=== PATIENT | female | born 1990 | race African-American/Black ===

== ENCOUNTER 2019-11-02 12:11 | Observation (INO) | payer OTHER, SELFPAY ==
[2019-11-02 12:41] VITALS: BMI 34.2
--- NOTE | 2019-11-02 12:42 | OBADM ---
This patient, Skip Wade, admitted to the OB room OB Post 115 for observation. Patient/family oriented to hospital policies and general routines including ID bracelet, bed and alarms, visiting hours, pain management, procedures, bathroom and other care routines, personal items, smoking policy, room service/diet, and visiting hours. Patient/Family are encouraged to report perceived risks to care and to ask questions if they do not understand what they are told or what they should do.
[2019-11-02 12:46] VITALS: BP 98/54; PULSE 105
[2019-11-02 12:50] LABS: Add Urine Microscopic? YES; Appearance Urine Clear (Clear); Bacteria Urine Trace /hpf; Bilirubin Urine Negative (Negative); Blood Urine Negative (Negative); Color Urine Yellow (Yellow); Glucose Urine UA Negative (Negative); Ketones Urine 1+ mg/dL (Negative); Leukocyte Esterase Ur Trace LEU/UL (Negative); Mucus Urine Few /lpf; Nitrate Urine Negative (Negative); Protein Urine 1+ mg/dL (Negative); Squamous Epithelial Cell Urine Moderate /hpf (Few); WBC Urine 0-3 /hpf
[2019-11-02 13:01] VITALS: BP 104/57; PULSE 113
--- NOTE | 2019-11-02 13:12 | P.PNOB_ITS ---
OB - Triage/Final Diagnosis Visit Information Date of evaluation: 11/02/19 Reason for evaluation: threatened labor Evaluation Laboratory results: Laboratory Tests 11/02/19 12:35 Urine Color Yellow Urine Appearance Clear Urine pH 6.0 Ur Specific [place] 1.020 Urine Protein 1+ H Urine Glucose (UA) Negative Urine Ketones 1+ H Ur Blood (Man) Negative Urine Nitrate Negative Urine Bilirubin Negative Urine Urobilinogen 4.0 H Leukocyte Esterase Rfl Trace H Urine RBC 3-5 H Urine WBC 0-3 Ur Squamous Epith Cells Moderate H Urine Bacteria Trace Urine Mucus Few H Vital signs: Vital Signs - 24 hr 11/02/19 12:46 11/02/19 13:01 Pulse Rate 105 H 113 H Blood Pressure 98/54 L 104/57 L
--- NOTE | 2019-11-02 13:17 | PC.NURSE ---
1310- Spoke with Dr. Tala Rangel regarding patient admission for pelvic pain. patient States the pain has been there for a while but has increased the last two days. urinalysis results given. Per Dr. tala Rangel, perform SVE and discharge patient to home.
== END 2019-11-02 13:27 | disposition home or self-care (01) ==
PROVIDERS: Admitting Provider Obstetrics & Gynecology; Visit Provider Obstetrics & Gynecology
DX: O47.03 False labor before 37 completed weeks of gestation, third trimester (principal); Z3A.34 34 weeks gestation of pregnancy
CPT/HCPCS: 81001; G0378; G0379

== ENCOUNTER 2019-11-30 12:52 | Observation (INO) | payer OTHER, SELFPAY ==
--- NOTE | 2019-11-30 15:21 | OBADM ---
This patient, Skip Wade, admitted to the OB room Labor/Delivery/Recovery 120 for observation. Patient/family oriented to hospital policies and general routines including ID bracelet, bed and alarms, visiting hours, pain management, procedures, bathroom and other care routines, personal items, smoking policy, room service/diet, and visiting hours. Patient/Family are encouraged to report perceived risks to care and to ask questions if they do not understand what they are told or what they should do.
--- NOTE | 2019-12-02 10:00 | P.DS_ITS ---
DS: Diagnosis Admitting Diagnosis Admitting Diagnosis: term/prev section/labor DS: Summary Time Spent with Patient Time attestation: Total time spent providing and/or coordinating discharge services: Exam Const: General: no acute distress Eyes: General: appearance normal, both eyes and all related structures Neck: Neck: supple and no JVD Thyroid: thyroid normal Resp: Effort & Inspection: normal respiratory effort Auscultation: clear to auscultation bilaterally Cardio: Rate: regular rate Rhythm: regular rhythm GI: Inspection: non-distended GI Palp: Yes Soft to palpation, No Tenderness to palpation present (GI) and No Guarding due to palpation present (GI) Auscultation: normal bowel sounds : General: Yes bladder normal to palpation External Female Exam: normal external appearance Speculum Exam - Vagina: normal vaginal discharge and No vaginal bleeding Speculum Exam - Cervix: nontender Bimanual exam- vagina & uterus: bladder normal to palpation and No Cervical tenderness present OB/external & speculum: No vaginal bleeding Skin: General skin exam: no rashes or lesions noted Extrem: General: normal to inspection and no edema Psych: Mental Status: mental status grossly normal Affect: normal affect Discharge Plan Discharge Attending physician on discharge: Mazin Richards Discharging Clinician: Mazin Richards Anticipated Discharge Date/Time: 11/30/19 15:30 Patient Disposition: Home, Self-Care Activity: may shower and as tolerated Diet: as tolerated Wound Care Instructions: follow printed instructions Stand Alone Forms: General Discharge Information Follow-up/Referrals: Mazin Richards MD [Physician] - Discharge Medications: Continued Classic 28 mg iron- 800 mcg Tablet 1 tablet PO DAILY RF: 0 No Action hydrocodone-acetaminophen [[place]] 5-325 mg tablet 1 tablet PO Q4H PRN (Reason: pain) Qty: 30 RF: 0 Date of admission: 11/30/19 12:52 Primary Care Provider: UNKNOWN,DOCTOR Admitting Provider: Mazin Richards Discharge Date/Time: 11/30/19 15:28 Attending physician on admission: Mazin Richards
--- NOTE | 2020-01-18 14:23 | PM.OBTRLD ---
OB - Triage/Final Diagnosis Visit Information Date of evaluation: 12/24/19 Reason for evaluation: threatened labor
== END 2019-11-30 15:28 | disposition home or self-care (01) ==
PROVIDERS: Admitting Provider Obstetrics & Gynecology; Visit Provider Obstetrics & Gynecology
DX: O34.219 Maternal care for unspecified type scar from previous cesarean delivery (principal); Z3A.38 38 weeks gestation of pregnancy
CPT/HCPCS: G0378; G0379

== ENCOUNTER 2019-11-30 18:25 | Inpatient (IN) | payer OTHER, SELFPAY ==
--- NOTE | 2019-11-10 14:51 | PC.NURSE ---
PATIENT STATES SHE IS A C/S ON 12/02/19 AT 0730--CALLED OFFICE DUE NOT FINDING PATIENT ON OR SCHEDULE--INFORMED WILL CALL SURGERY AND SCHEDULE THE C/S ON 12/02/19 AT 0730 PATIENT GIVEN REQUISITION FOR LAB DRAW ON 12/01/19
[2019-11-30] VITALS (47 sets, daily range): BP systolic 106–144; BP diastolic 44–89; PULSE 66–108; RESP 16–18; TEMP 36.2–36.7; O2SAT 97–100; BMI 33.8
--- NOTE | 2019-11-30 17:00 | PM.OBTRLD ---
OB - Triage/Final Diagnosis Visit Information Date of evaluation: 11/30/19 Reason for evaluation: threatened labor
--- NOTE | 2019-11-30 18:56 | WPDANESEPP ---
Anes - Eval Pre Procedure Procedure: Operation Date: 12/02/19 07:30 Proposed Procedures p Repeat Section - Mazin Richards MD Date/Time: 11/30/19 18:56 Surgeon: Rayo Rangel Preop Diagnosis: Previous C Section Pre Op Diagnosis: contractions Patient Data Age: 29 Gender: F Height: Weight: Allergies Allergy/AdvReac Type Severity Reaction Status Date / Time No Known Allergies Allergy Verified 11/10/19 14:41 Home Medications Medication Instructions Recorded Confirmed Type Classic 1 tablet PO DAILY 11/02/19 11/02/19 History Patient hx anesthesia problems: none Family hx anesthesia problems: none PMFSH Past Medical History Medical History Morbid obesity Surgical History Surgical History Previous section Family History Family History Mother Hypertension Social History Social History Substance use: never Spiritual care concerns: No Exam Day of Procedure 11/30/19 18:56 Patient weight: morbidly obese Heart: regular rate and rhythm Airway: Mallampati scale class II Neurological: alert and oriented
[2019-11-30 19:08] LABS: Basophils Percent Auto 0.2 % (0.2-1.2); Eosinophils Absolute Auto 0.1 K/mm3 (0-0.3); Eosinophils Percent Auto 0.6 % (0-4.4); Hematocrit 31.6 % (37.0-47.0); Hemoglobin 9.7 g/dL (12.0-15.0); Immature Granulocyte Absolute 0.06 K/mm3 (0.00-0.031); Immature Granulocyte Percent A 0.6 % (0-0.5); Lymphocytes Absolute Auto 1.52 K/mm3 (0.9-3.2); Lymphocytes Percent Auto 14.9 % (18.3-44.2); Mean Corpuscular HGB Conc 30.7 g/dl (32-36); Mean Corpuscular Hemoglobin 24.5 pg (26-34); Mean Corpuscular Volume 79.8 fl (80-100); Monocytes Absolute Auto 0.9 K/mm3 (0.1-0.6); Monocytes Percent Auto 8.4 % (2.6-8.5); Neutrophils Absolute Auto 7.7 K/mm3 (1.3-6.7); Neutrophils Percent Auto 75.3 % (45.5-73.1); Platelet Count Result 212 k/mm3 (150-375); Red Blood Count 3.96 M/mm3 (4.2-5.4); Red Cell Distribution Width 15.3 % (11.5-14.5); White Blood Count 10.2 K/mm3 (4.5-10.0)
[2019-11-30] MEDS: LACTATED RINGERS 1,000 ML 125 ML IV CONT (19:13)
--- NOTE | 2019-11-30 19:14 | WPDANESEFPP ---
Anes - Eval Final PreProcedure Day of Procedure 11/30/19 19:14 Patient weight: morbidly obese Heart: regular rate and rhythm Lungs: clear to auscultation and normal air movement Airway: Mallampati scale class II Neurological: alert and oriented Last oral intake: >/= 8 hours ASA classification: III Emergent: no Anesthetic plan: proceed Anesthesia type and monitoring: regional spinal Informed Consent: The patient's anesthetic plan and its attendant risks and benefits were discussed with the patient/family/POA. Questions were solicited and answers provided to the satisfaction of the patient/family/POA.
[2019-11-30] MEDS: ceFAZolin 2 GM/D5W 50 ML 2 GM/50 ML BAG IVPB (19:21)
--- NOTE | 2019-11-30 20:06 | PM.IMHP ---
H&P: HPI History of Present Illness Chief complaint: contractions Narrative: Skip Wade is a 29 year old female Who presents at term in active labor. 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 She was scheduled for repeat section. She was seen earlier in the day with some irregular contractions sent home. She returned today in active labor. She was scheduled for repeat section Review of Systems Review of Systems: All systems reviewed & are unremarkable except as noted in HPI and below PMFSH Past Medical History Medical History Morbid obesity Surgical History Surgical History Previous section Family History Family History Mother Hypertension Social History Social History Substance use: never Spiritual care concerns: No Meds Home Medications and Allergies Home Medications Medication Instructions Recorded Confirmed Type Classic 1 tablet PO DAILY 11/02/19 11/02/19 History Allergies Allergy/AdvReac Type Severity Reaction Status Date / Time No Known Allergies Allergy Verified 11/10/19 14:41 Vital Signs Vital Signs - 24 hr 11/30/19 19:01 Pulse Rate 108 H Blood Pressure 144/87 H Exam Const: General: no acute distress Eyes: General: appearance normal, both eyes and all related structures Neck: Neck: supple and no JVD Thyroid: thyroid normal Resp: Effort & Inspection: normal respiratory effort Auscultation: clear to auscultation bilaterally Cardio: Rate: regular rate Rhythm: regular rhythm GI: Inspection: non-distended GI Palp: Yes Soft to palpation, No Tenderness to palpation present (GI) and No Guarding due to palpation present (GI) Auscultation: normal bowel sounds : General: Yes other (cx 4 by rn exam. fhts ok. ucs q 2) Skin: General skin exam: no rashes or lesions noted Extrem: General: normal to inspection and no edema Psych: Mental Status: mental status grossly normal Affect: normal affect H&P: Results Labs Labs: Short CBC 11/30/19 Range/Units 18:58 WBC 10.2 H (4.5-10.0) K/mm3 Hgb 9.7 L (12.0-15.0) g/dL Hct 31.6 L (37.0-47.0) % Plt Count 212 (150-375) k/mm3 Assessment and Plan Additional Plan term in active labor with known cleft palate and agenesis of the corpus callosum in a. Previously had a section Plan: Repeat low-transverse section
--- NOTE | 2019-11-30 20:08 | P.OP_ITS ---
Procedure Note - Detailed Date of procedure: 11/30/19 Pre-op diagnosis: contractions Surgeon: Mazin Richards MD postop diagnosis: term , previous section, active labor: Known cleft palate and agenesis of the corpus callosum Procedure: Repeat low-transverse section Findings: Female 7 lb 10 oz Apgars 8 and 9 at 1 and 5 minutes respectively EBL: 420cc Anesthesia: Spinal Complications: None Description of procedure: The patient was admitted via ambulance in active lab or. She was seen earlier in the day with irregular contractions and was noted to be in active labor upon admission. After obtaining informed consent, the patient was prepped and draped in the normal sterile fashion placed in the supine position. The previous Pfannenstiel incision was rest 2 layers to the fascia. Fascia was upward outward and upward outward fashion bilaterally. Underlying muscles were sharply dissected. Parietal peritoneum of who initially clamps and entered by sharp dissection. This was carried superiorly and inferiorly to the dome of the bladder. Bladder blade was placed and a bladder flap formed. Bladder blade returned and a low transverse incision made. The head delivered in the NAOMI position. Anterior posterior shoulder delivered spontaneously. Cord was clamped x2 and cut and infant passed off the table given Apgars of 8 [id number] 9 [id number]. Cord blood was drawn. Placenta delivered intact manually. Uterus was delivered from the abdomen and wrapped in a moist towel. After cleaning debris from the inside of the uterus the lower uterine segment was closed with continuous running locking 0 Vicryl from lateral edge to lateral edge. This was followed by a 2nd imbricating running 0 Vicryl from lateral edge to lateral edge. Hemostasis was assured the ovaries and tubes appeared within normal limits. The uterus was returned to the abdomen. The laps were removed and accounted for. The uterine incision inspected 1 last time and noted to be hemostatic. The fascia was closed with continuous running 0 Vicryl from lateral edge to midline bilaterally. Irrigation subcutaneous layer. The skin closed with 4 O Monocryl and glue. All sponge, needle, instrument counts were correct. There were no immediate complications
--- NOTE | 2019-11-30 20:53 | LDADM ---
This patient, Skip Wade, was admitted to Labor/Delivery/Recovery 120 on 11/30/19 at 18:25. Plans for labor, pain management and were discussed with patient. Patient/family oriented to hospital policies and general routines including ID bracelet, bed and alarms, visiting hours, pain management, procedures, bathroom and other care routines, personal items, smoking policy, room service/diet and guest tray routines, security routines, and visiting hours. Patient/Family are encouraged to report perceived risks to care and to ask questions if they do not understand what they are told or what they should do. See OBIX for further documentation.
--- NOTE | 2019-11-30 22:18 | OBPPTRN ---
Patient transferred to post room #288 via stretcher. Support person present. Oriented to unit, room, information board, rooming in, admission packet and security measures. Patient verbalizes understanding.
[2019-11-30] MEDS: ONDANSETRON INJ 4 MG/2 ML VIAL IV PUSH (22:40)
[2019-12-01] VITALS (9 sets, daily range): BP systolic 102–118; BP diastolic 60–75; PULSE 87–97; RESP 16–18; TEMP 36.7–37.4; O2SAT 95–100
[2019-12-01] MEDS: NALBUPHINE HCL 10 MG/ML AMPUL 2 MG IV PUSH ×3 (01:01→09:10)
[2019-12-01] MEDS: DEXTROSE 5%/0.45% SOD CHL 1,000 ML 125 ML IV CONT (02:36)
[2019-12-01 04:57] LABS: Basophils Percent Auto 0.1 % (0.2-1.2); Eosinophils Percent Auto 0.2 % (0-4.4); Hematocrit 28.8 % (37.0-47.0); Hemoglobin 8.9 g/dL (12.0-15.0); Immature Granulocyte Percent A 0.6 % (0-0.5); Lymphocytes Absolute Auto 1.53 K/mm3 (0.9-3.2); Lymphocytes Percent Auto 9.8 % (18.3-44.2); Mean Corpuscular HGB Conc 30.9 g/dl (32-36); Mean Corpuscular Hemoglobin 24.3 pg (26-34); Mean Corpuscular Volume 78.7 fl (80-100); Mean Platelet Volume 10.7 fl (7.4-10.4); Monocytes Absolute Auto 1.2 K/mm3 (0.1-0.6); Monocytes Percent Auto 7.5 % (2.6-8.5); Neutrophils Absolute Auto 12.8 K/mm3 (1.3-6.7); Neutrophils Percent Auto 81.8 % (45.5-73.1); Platelet Count Result 213 k/mm3 (150-375); Red Blood Count 3.66 M/mm3 (4.2-5.4); Red Cell Distribution Width 15.1 % (11.5-14.5); White Blood Count 15.7 K/mm3 (4.5-10.0)
--- NOTE | 2019-12-01 07:06 | PM.OBPNVD ---
OB - PN: Subj Subjective Date/time seen: 12/01/19 07:06 Patient comments: no complaints and pain well controlled baby status: doing well and nursing well OB - PN: Obj Data Labs CBC & Chem 7: 12/01/19 04:35 Labs: Laboratory Results - last 24 hr 11/30/19 11/30/19 12/01/19 18:58 18:58 04:35 WBC 10.2 H 15.7 H RBC 3.96 L 3.66 L Hgb 9.7 L 8.9 L Hct 31.6 L 28.8 L MCV 79.8 L 78.7 L MCH 24.5 L 24.3 L MCHC 30.7 L 30.9 L RDW 15.3 H 15.1 H Plt Count 212 213 MPV 11.0 H 10.7 H Immature Gran % (Auto) 0.6 H 0.6 H Neut % (Auto) 75.3 H 81.8 H Lymph % (Auto) 14.9 L 9.8 L [place] % (Auto) 8.4 7.5 Eos % (Auto) 0.6 0.2 Baso % (Auto) 0.2 0.1 L Lymph # (Auto) 1.52 1.53 [place] # (Auto) 0.9 H 1.2 H Eos # (Auto) 0.1 0.0 Baso # (Auto) 0.0 0.0 Abs Immat Gran (auto) 0.06 H 0.10 H Absolute Neuts (auto) 7.7 H 12.8 H Absolute Nucleated RBC 0.0 0.0 Nucleated RBC % 0.0 0.0 Blood Type O Positive Antibody Screen Negative OB - PN A/P Plan day: 1 Plan: routine care Time Spent With Patient Time: Total time spent is greater than 50% in coordination of care (as documented) at patient's floor/unit and/or counseling patient: Time with patient: less than 15 minutes Review of Systems Review of Systems: All systems reviewed & are unremarkable except as noted in HPI and below Exam Const: General: no acute distress Eyes: General: appearance normal, both eyes and all related structures Neck: Neck: supple and no JVD Thyroid: thyroid normal Resp: Effort & Inspection: normal respiratory effort Auscultation: clear to auscultation bilaterally Cardio: Rate: regular rate Rhythm: regular rhythm GI: Inspection: normal to inspection Percussion: Yes normal to percussion Auscultation: normal bowel sounds Other: wound cdi : General: Yes bladder normal to palpation External Female Exam: normal external appearance Speculum Exam - Vagina: normal vaginal discharge and No vaginal bleeding Speculum Exam - Cervix: nontender Bimanual exam- vagina & uterus: bladder normal to palpation and No Cervical tenderness present OB/external & speculum: No vaginal bleeding Skin: General skin exam: no rashes or lesions noted Extrem: General: normal to inspection and no edema Psych: Mental Status: mental status grossly normal Affect: normal affect
[2019-12-01] MEDS: KETOROLAC 30 MG/ML VIAL (*BKC) IV PUSH (07:09)
[2019-12-01] MEDS: LORATADINE 10 MG TABLET PO (07:33)
--- NOTE | 2019-12-01 08:14 | WPDANLDPN2 ---
Anes-Prog Note L&D Date/Time: 12/01/19 08:14 Comfortable throughout: section Neuraxial method: spinal Epidural/Spinal procedure site: clean & non-tender Neuro status: Neuro function grossly intact. Cardiovascular status: normal Respiratory status: normal Airway patency: baseline Mental status: baseline Post-Op hydration status: normal Vital Signs: Last Vital Signs Temp 36.9 C 12/01/19 06:00 Pulse 96 12/01/19 06:00 Resp 18 12/01/19 06:00 BP 115/60 12/01/19 06:00 Pulse Ox 98 12/01/19 06:00 Pain score (VAS): 0/10. Patient resting up to chair at time of assessment, appears comfortable. RN and support person at bedside. I/O: Intake & Output 11/30/19 12/01/19 12/01/19 23:59 07:59 15:59 Intake Total 1050 740 Output Total 507 600 Balance 543 140 Post-procedural complaints: none Patient feedback: Patient satisfied with anesthetic care.
--- NOTE | 2019-12-01 08:15 | WPDANLDNPN2 ---
Anes-Prog Note L&D-Neuraxial Date/Time: 12/01/19 08:15 Neuraxial medications: intrathecal PF morphine Opiod-related complaints: nausea mild, no treatment Patient feedback: Patient satisfied with post-operative pain management.
[2019-12-01] MEDS: POLYSACCHARIDE IRON COMPLEX 150 MG CAPSULE PO ×2 (09:09→15:36)
[2019-12-01 10:29] LABS: Rapid Plasma Reagin Non-Reactive (NonReactive)
[2019-12-01] MEDS: IBUPROFEN 600 MG TABLET PO ×2 (15:36→23:29)
--- NOTE | 2019-12-01 15:45 | PC.NURSE ---
Breast pump provided due to mother wishes to pump and bottle feed at this time. Instructions given on breast pump care and usage, pumping schedule, nipple care, and collection and storage of breast milk. Encouraged [id number], breast massage and manual expression to stimulate supply. Mother did not wish for assessment of flange size, she feels comfortable with pumping from first child. Mother states she will pump later when ready. Patient verbalizes and demonstrates understanding of instructions.
[2019-12-01] MEDS: SIMETHICONE 80 MG TAB.CHEW PO ×2 (17:53→23:29)
[2019-12-02] MEDS: SIMETHICONE 80 MG TAB.CHEW PO ×3 (04:28→17:40)
--- NOTE | 2019-12-02 06:45 | P.PNOB_ITS ---
OB - PN: Subj Subjective Date/time seen: 12/02/19 06:45 Patient comments: no complaints and pain well controlled OB - PN: Obj Data Labs CBC & Chem 7: 12/01/19 04:35 Labs: Laboratory Results - last 24 hr 11/30/19 18:58 RPR Non-reactive OB - PN A/P Plan day: 2 Plan: routine care Time Spent With Patient Time: Total time spent is greater than 50% in coordination of care (as documented) at patient's floor/unit and/or counseling patient: Time with patient: less than 15 minutes Review of Systems Review of Systems: All systems reviewed & are unremarkable except as noted in HPI and below Exam Const: General: no acute distress Eyes: General: appearance normal, both eyes and all related structures Neck: Neck: supple and no JVD Thyroid: thyroid normal Resp: Effort & Inspection: normal respiratory effort Auscultation: clear to auscultation bilaterally Cardio: Rate: regular rate Rhythm: regular rhythm GI: Inspection: non-distended GI Palp: Yes Soft to palpation, No Tenderness to palpation present (GI) and No Guarding due to palpation present (GI) Auscultation: normal bowel sounds : General: Yes bladder normal to palpation External Female Exam: normal external appearance Speculum Exam - Vagina: normal vaginal discharge and No vaginal bleeding Speculum Exam - Cervix: nontender Bimanual exam- vagina & uterus: bladder normal to palpation and No Cervical tenderness present OB /external & speculum: No vaginal bleeding Skin: General skin exam: no rashes or lesions noted Extrem: General: normal to inspection and no edema Psych: Mental Status: mental status grossly normal Affect: normal affect
[2019-12-02 08:45] VITALS: BP 117/68; PULSE 91; RESP 18; TEMP 37; O2SAT 98
--- NOTE | 2019-12-02 10:01 | DS_ITS ---
Discharge Summary Signed This report was moved to the correct visit, [id number] on 12/23/2019. Original report was signed by Dr. Mazin Richards on 12/03/2019 at 0645. DS: Diagnosis Admitting Diagnosis Admitting Diagnosis: term/prev section/labor DS: Summary Time Spent with Patient Time attestation: Total time spent providing and/or coordinating discharge services: Exam Const: General: no acute distress Eyes: General: appearance normal, both eyes and all related structures Neck: Neck: supple and no JVD Thyroid: thyroid normal Resp: Effort & Inspection: normal respiratory effort Auscultation: clear to auscultation bilaterally Cardio: Rate: regular rate Rhythm: regular rhythm GI: Inspection: non-distended GI Palp: Yes Soft to palpation, No Tenderness to palpation present (GI) and No Guarding due to palpation present (GI) Auscultation: normal bowel sounds : General: Yes bladder normal to palpation External Female Exam: normal external appearance Speculum Exam - Vagina: normal vaginal discharge and No vaginal bleeding Speculum Exam - Cervix: nontender Bimanual exam- vagina & uterus: bladder normal to palpation and No Cervical tenderness present OB/external & speculum: No vaginal bleeding Skin: General skin exam: no rashes or lesions noted Extrem: General: normal to inspection and no edema Psych: Mental Status: mental status grossly normal Affect: normal affect Discharge Plan Discharge Attending physician on discharge: Mazin Richards Discharging Clinician: Mazin Richards Anticipated Discharge Date/Time: 11/30/19 15:30 Patient Disposition: Home, Self-Care Activity: may shower and as tolerated Diet: as tolerated Wound Care Instructions: follow printed instructions Stand Alone Forms: General Discharge Information Follow-up/Referrals: Mazin Richards MD [Physician] - Discharge Medications: Continued Classic 28 mg iron- 800 mcg Tablet 1 tablet PO DAILY RF: 0 No Action hydrocodone-acetaminophen [[place]] 5-325 mg tablet 1 tablet PO Q4H PRN (Reason: pain) Qty: 30 RF: 0 Date of admission: 11/30/19 12:52 Primary Care Provider: UNKNOWN,DOCTOR Admitting Provider: Mazin Richards Discharge Date/Time: 11/30/19 15:28 Attending physician on admission: Mazin Richards Report Initialized date/time: Mazin Burgess MD 12/02/19 / 1001 Electronically signed by: Mazin Burgess MD 12/03/19 0645 [facility]
[2019-12-02 10:45] VITALS: PULSE 91; RESP 18; O2SAT 98
[2019-12-02] MEDS: MULTIVIT/MIN/PREN/FOL AC/IRON TABLET 1 TAB PO (10:48)
[2019-12-02] MEDS: POLYSACCHARIDE IRON COMPLEX 150 MG CAPSULE PO ×2 (10:48→17:40)
[2019-12-02] MEDS: LORATADINE 10 MG TABLET PO (10:48)
[2019-12-02] MEDS: DOCUSATE SODIUM 100 MG CAPSULE PO ×2 (10:48→17:40)
[2019-12-02] MEDS: IBUPROFEN 600 MG TABLET PO ×2 (10:48→22:10)
[2019-12-02] MEDS: LANOLIN (LANSINOH) 7.5 GM CREAM 1 APPLIC TOPICAL (10:50)
--- NOTE | 2019-12-02 13:34 | PCCCNOTE ---
Care Coordinaton Note: Pt. referred for bonding and infant cleft lip and palate. Met with pt. and FOB at bedside. Pt. reports they have already met the team at [facility] that specializes with infants that have cleft lip and palate. They wanted to deliver here and follow up with specialist at [facility] after discharge. Pt. reports bd special education teacher, Dr. Cristina, arranging outpatient follow up. Mother holding, snuggling and kissing on infant during most of our discussion. Mother reports she has had a hard time accepting and processing what issues baby may have. She denies needs for other community resources or counseling. She reports having all necessary baby care items. She is familiar with [facility] and plans to set that up for this baby. She plans to return home with her 3 year old boy, infant, and FOB. She reports they have supportive family and they will be coming up to visit today. She denies further CC needs.
[2019-12-02 20:25] VITALS: BP 118/70; PULSE 85; RESP 18; TEMP 36.8
--- NOTE | 2019-12-03 06:45 | PM.OBPNVD ---
OB - PN: Subj Subjective Date/time seen: 12/03/19 06:45 Patient comments: no complaints and pain well controlled baby status: doing well OB - PN: Obj Data Labs CBC & Chem 7: 12/01/19 04:35 OB - PN A/P Plan day: 3 Plan: routine care, discharge home and follow up 6 weeks (4 weeks) Time Spent With Patient Time: Total time spent is greater than 50% in coordination of care (as documented) at patient's floor/unit and/or counseling patient: Time with patient: less than 15 minutes Review of Systems Review of Systems: All systems reviewed & are unremarkable except as noted in HPI and below Exam Const: General: no acute distress Eyes: General: appearance normal, both eyes and all related structures Neck: Neck: supple and no JVD Thyroid: thyroid normal Resp: Effort & Inspection: normal respiratory effort Auscultation: clear to auscultation bilaterally Cardio: Rate: regular rate Rhythm: regular rhythm GI: Inspection: normal to inspection and incision (cdi) Percussion: Yes normal to percussion : General: Yes bladder normal to palpation External Female Exam: normal external appearance Speculum Exam - Vagina: normal vaginal discharge and No vaginal bleeding Speculum Exam - Cervix: nontender Bimanual exam- vagina & uterus: bladder normal to palpation and No Cervical tenderness present OB/external & speculum: No vaginal bleeding Skin: General skin exam: no rashes or lesions noted Extrem: General: normal to inspection and no edema Psych: Mental Status: mental status grossly normal Affect: normal affect
--- NOTE | 2019-12-03 09:30 | PC.NURSE ---
Consult with pt., mother reports she is not pumping regularly stating she does not have milk. Discussed stimulation and milk supply and to pump every three hours for 15 minutes, to stimulate milk supply. Instructions given on breast pump care and usage, pumping schedule, nipple care, and collection and storage of breast milk. Encouraged [id number], breast massage and manual expression to stimulate supply. Assessed patient for correct flange size, placement and draw on previous day. Patient verbalizes and demonstrates understanding of instructions. Mother states she will pump more regularly one home and she receives her pump from [facility].
--- NOTE | 2019-12-03 09:39 | PC.NURSE ---
Addendum entered by Topher Patel RN 12/03/19 09:40: actual time of note was 0800 Original Note: PT introductions made and plan of care discussed per post op c section, pain management, breast pumping, bottle feeding, daily care activities and pending discharge to home. PT verbalized understanding of such care.
--- NOTE | 2019-12-03 10:00 | PC.NURSE ---
Patient viewed the discharge video Mother & Baby Care, The First Two Weeks . Patient was given the opportunity and encouraged to ask questions. Patient verbalized understanding of information shared and has been given the mother/baby guide for home reference.
[2019-12-03] MEDS: DOCUSATE SODIUM 100 MG CAPSULE PO (10:58)
[2019-12-03] MEDS: LORATADINE 10 MG TABLET PO (10:58)
[2019-12-03] MEDS: SIMETHICONE 80 MG TAB.CHEW PO (10:59)
[2019-12-03] MEDS: POLYSACCHARIDE IRON COMPLEX 150 MG CAPSULE PO (10:59)
[2019-12-03] MEDS: MULTIVIT/MIN/PREN/FOL AC/IRON TABLET 1 TAB PO (10:59)
[2019-12-03 11:00] VITALS: BP 125/82; PULSE 82; PULSE 88; RESP 18; TEMP 37; O2SAT 99
[2019-12-03] MEDS: IBUPROFEN 600 MG TABLET PO (11:01)
--- NOTE | 2019-12-03 12:00 | PC.NURSE ---
PT discharge instructions given per protocol and pt verbalized understanding of such instructions. Follow up appts confirmed
--- NOTE | 2019-12-03 12:00 | PC.NURSE ---
PT received discharge instructions per protocol and verbalized understanding of such instructions.
--- NOTE | 2019-12-03 12:51 | PC.NURSE ---
PT discharged to home ambulatory accompanied by significant other and and taken to waiting car. Follow up appts confirmed
[2019-12-04 09:54] VITALS: BP 135/82; PULSE 79; RESP 18; TEMP 36.8
--- NOTE | 2019-12-24 10:02 | PM.DS ---
DS: Diagnosis Admitting Diagnosis Admitting Diagnosis: Encounter for supervision of normal , unspecified, third trimester DS: Summary Time Spent with Patient Time attestation: Total time spent providing and/or coordinating discharge services: Exam Const: General: no acute distress Eyes: General: appearance normal, both eyes and all related structures Neck: Neck: supple and no JVD Thyroid: thyroid normal Resp: Effort & Inspection: normal respiratory effort Auscultation: clear to auscultation bilaterally Cardio: Rate: regular rate Rhythm: regular rhythm GI: Inspection: non-distended GI Palp: Yes Soft to palpation, No Tenderness to palpation present (GI) and No Guarding due to palpation present (GI) Auscultation: normal bowel sounds : General: Yes bladder normal to palpation External Female Exam: normal external appearance Speculum Exam - Vagina: normal vaginal discharge and No vaginal bleeding Speculum Exam - Cervix: nontender Bimanual exam- vagina & uterus: bladder normal to palpation and No Cervical tenderness present OB/external & speculum: No vaginal bleeding Skin: General skin exam: no rashes or lesions noted Extrem: General: normal to inspection and no edema Psych: Mental Status: mental status grossly normal Affect: normal affect Discharge Plan Discharge Attending physician on discharge: Mazin Richards Consulting providers: Colt Rogers Discharging Clinician: Mazin Richards Patient Disposition: Home, Self-Care Activity: may shower, no straining, may drive after 2 weeks and pelvic rest Diet: heart healthy Wound Care Instructions: follow printed instructions Discharge Instructions: Education: Mom and Baby Guide Given to: Mother Follow-Up: Call your delivering provider's office for an appointment to be seen in: 1 Week Mom and baby should come to the [facility] for the follow-up appointment. Appointment Date/Time: December 04, 2019 at 9:00 am What to expect at your follow-up visit: Blood Pressure Check Call [phone] if you are unable to keep your appointment time. BREAST CARE: 1. Wear a snug supportive bra. 2. For engorgement discomfort: Breast Feeding: A. Apply warm moist washcloths B. Express milk as needed to relieve engorgement C. Wear loose clothing Bottle Feeding: A. May apply ice packs 3. For sore nipples: A. Identify correct latch-on B. Apply warm moist washcloths before and after nursing C. Air dry nipples after nursing D. May apply Lansinoh cream to nipples ABDOMINAL INCISION: (if applicable) 1. Allow incision to air dry 2. Do NOT use lotions for powders on your incision 3. When showering, allow soap and water to run over the incision, but do not wash incision PERINEAL CARE: 1. Until bleeding stops, use your nely bottle after urinating 2. Change your pad frequently throughout the day 3. You may take sitz baths several times a day (fill your bathtub with warm water and soak for 20 minutes.) Do NOT bathe in the water 4. No tub baths until seen by your physician - You may shower ACTIVITY: 1. Rest as much as possible. 2. Do not exercise or lift anything heavier than your baby (such as laundry or other children.) 3. Avoid stairs or driving as much as possible. 4. Do not put anything into the vagina. No douching, tampons, or sexual activity until seen by physician. NOTIFY PHYSICIAN IF YOU HAVE ANY QUESTIONS OR IF ANY OF THE FOLLOWING SYMPTOMS OCCUR: 1. If your incision becomes red, swollen, or more painful than what you have experienced in the hospital. 2. If your vaginal bleeding becomes foul smelling. 3. If your vaginal bleeding becomes more heavy than a period or if your bleeding changes from pink to bright red. However, you may pass an occasional walnut-sized clot once or twice for the first week . 4. If
== END 2019-12-03 12:51 | disposition home or self-care (01) | DRG 540 ==
LOC: ANHLDR 21:31 → ANHOB2 22:41
PROVIDERS: Admitting Provider Obstetrics & Gynecology; Visit Provider Obstetrics & Gynecology
PROC: 10D00Z1 Extraction of Products of Conception, Low, Open Approach (ICD-10-PCS; CPT 59514; principal; 2019-11-30 19:30)
DX: O34.211 Maternal care for low transverse scar from previous cesarean delivery (principal); Z37.0 Single live birth; Z3A.38 38 weeks gestation of pregnancy; O99.214 Obesity complicating childbirth; E66.01 Morbid (severe) obesity due to excess calories; O75.89 Other specified complications of labor and delivery
CPT/HCPCS: 36415; 85025; 86592; 86850; 86900; 86901; A9270; J0131; J0690; J1200; J1885; J2274; J2300; J2370; J2405; J2590; J7120

== ENCOUNTER 2023-08-14 03:13 | Day surgery (SDC) | payer MEDICAID, SELFPAY ==
[2023-08-08 12:02] VITALS: BMI 27.6
--- NOTE | 2023-08-08 12:06 | PC.NURSE ---
Report to the Outpatient Waiting Room, entrance under the green pavilion located off [facility], at time 0600 on date 08/14/23. Planned Procedure Time: 0730. Time changes happen often and if your time is changed the preop area will call you the afternoon before. - You and your visitor will be asked to self-screen and do not enter if you have any COVID symptoms. - A mask is optional within the hospital at this time. Patients may have clear liquids (water, carbonated beverages, clear teas, apple juice) until 3 hours prior to surgery with a maximum of 20 ounces. - No food from midnight until time of surgery Take the following medications with a SIP of water the morning of surgery: N/A DO NOT STOP ANY OF YOUR OTHER PRESCRIPTION MEDICATIONS PRIOR TO SURGERY ?EXCEPT THE FOLLOWING Medications to discontinue per physician: N/A Date to take last dose: N/A Please no make-up, nail wolof, hairspray, perfume, deodorant, or body powder the day of surgery. No jewelry (including any body piercings) or valuables the day of surgery, leave them at home. Please take a shower or bath the night before, or the morning of, surgery with an antibacterial soap. Wear comfortable, loose fitting clothing. - Jewelry must be removed prior to entering the operating room. Rings and piercings that are not removed may be cut off. - The hospital will not accept responsibility for valuables. - Please leave all valuables, including medications, at home the day of surgery. If you are going home after surgery, a licensed jitney driver must drive you home. - NO public transportation without another adult if you receive anesthesia. - We recommend that an adult stay with you for 24 hours following discharge. - We also recommend that you do not drive, make important decision, drink alcoholic beverages, or take any drugs that were not prescribed by your health care provider for at least 24 hours after your discharge time. Follow any additional instructions given to you from your surgeon. If you or anyone in your household have experienced Covid symptoms in the past week, please notify your surgeon or the nurse liaison at the phone number below for possible testing. Telephone instructions given to PT - ROSA WALLIS and asked if any additional questions and then verbalized understanding. Patient advised to call surgeon office or pre surgery nurse liaison [phone] if any additional questions.
--- NOTE | 2023-08-12 07:14 | PM.IMHP ---
H&P: HPI History of Present Illness Date/Time: 08/12/23 07:14 Chief Complaint: Incomplete Narrative: This is a 32-year-old female with an incomplete proven on ultrasound with remaining products conception. She continues to bleed she is offered suction dilatation curettage risks and benefits she had questions answered she asked to proceed PMFSH Past Medical History Medical History (Updated 08/12/23 @ 07:16 by Mazin Rangel MD) Morbid obesity Surgical History Surgical History Previous section Family History Family History Mother Hypertension Social History Social History Smoking status: Never smoker Alcohol intake: current Alcohol use details: OCCASIONALLY WINE Substance use: current Substance use type: marijuana Living arrangements: with family Additional living arrangements comments: CHILDREN Spiritual care concerns: No Meds Home Medications and Allergies Home Medications Medication Instructions Recorded Confirmed Type No Home Medications 08/08/23 08/08/23 History Allergies Allergy/AdvReac Type Severity Reaction Status Date / Time No Known Allergies Allergy Verified 08/08/23 12:02 Exam Const: General: cooperative, healthy appearing and comfortable Nutritional Appearance: average body habitus Orientation/consciousness: oriented to person, oriented to place and oriented to time HENMT: Head: normal to inspection Resp: Effort & Inspection: normal respiratory effort Cardio: Rate: regular rate Rhythm: regular rhythm Heart sounds: S1 normal heart sound present and S2 normal heart sound present GI: Inspection: normal to inspection : External Female Exam: normal external appearance Speculum Exam - Vagina: normal appearance of the vagina and vaginal bleeding Speculum Exam - Cervix: normal appearance of the cervix Bimanual exam- vagina & uterus: enlarged Bimanual Exam- Adnexa, other: normal adnexae Assessment and Plan Assessment and plan (1) Incomplete : Code(s): O03.4 - Incomplete spontaneous without complication Status: Acute Plan Suction dilatation curettage
--- NOTE | 2023-08-13 14:03 | P.PNAN_ITS ---
Anes - Initial Pre Proc Eval Procedure: Operation Date: 08/14/23 07:30 Proposed Procedures p Suction Dilation and Curettage - Mazin Rangel MD Date/Time: 08/13/23 14:03 Surgeon: Mazin Rangel MD Pre Op Diagnosis: Miss Jaquez Patient Data Age: 32 Gender: F Height: 1.7 m Weight: 79.85 kg Allergies Allergy/AdvReac Type Severity Reaction Status Date / Time No Known Allergies Allergy Verified 08/14/23 06:24 Home Medications Medication Instructions Recorded Confirmed Type hydrocodone 5 mg-acetaminophen 325 1 tablet PO Q4H PRN pain #14 tabs 08/14/23 Rx mg tablet Patient hx anesthesia problems: none Family hx anesthesia problems: none Results Review: All pre-operative results and documents have been reviewed as part of the pre- operative evaluation. [facility] Past Medical History Medical History (Updated 08/13/23 @ 14:04 by Timothy Domínguez DO) PONV (postoperative nausea and vomiting) Surgical History Surgical History (Updated 08/13/23 @ 14:04 by Timothy Domínguez DO) History of abdominoplasty Previous section Family History Family History Mother Hypertension Social History Social History Smoking status: Never smoker Alcohol intake: current Alcohol use details: OCCASIONALLY WINE Substance use: current Substance use type: marijuana Living arrangements: with family Additional living arrangements comments: CHILDREN Spiritual care concerns: No Anes - Eval Final PreProcedure Day of Procedure 08/13/23 14:03 Patient weight: overweight Heart: regular rate and rhythm Lungs: clear to auscultation Airway: Mallampati scale class II Neurological: alert and oriented Last oral intake: >/= 8 hours ASA classification: II Emergent: no Anesthetic plan: proceed Anesthesia type and monitoring: general GIVS and standard monitoring Results Review: All pre-operative results and documents have been reviewed as part of the pre- operative evaluation. Informed Consent: The patient's anesthetic plan and its attendant risks and benefits were discussed with the patient/family/POA. Questions were solicited and answers provided to the satisfaction of the patient/family/POA.
[2023-08-14 06:30] VITALS: BP 102/69; PULSE 62; RESP 16; TEMP 36.6; O2SAT 100
--- NOTE | 2023-08-14 06:33 | WPDHPUPDATE1 ---
History and Physical Update Update Date/Time: 08/14/23 06:33 History and Physical has been reviewed, including an updated exam of the patient. There are NO changes in the patient's condition. Risks, benefits, and alternatives have been discussed and questions answered. Patient agrees to proceed with procedure.
[2023-08-14] MEDS: LACTATED RINGERS 1,000 ML 30 ML IV CONT (06:46)
[2023-08-14] MEDS: ACETAMINOPHEN 500 MG TABLET 1000 MG PO (06:46)
[2023-08-14 06:58] LABS: Hematocrit 36.5 % (37.0-47.0)
[2023-08-14] MEDS: LIDOCAINE HCL 1% LOCAL INJ 20 ML VIAL 10 ML INFILTRATE (07:34)
--- NOTE | 2023-08-14 07:38 | W.PM.PROC2 ---
Procedure Note - Detailed Date of Procedure 08/14/23 Pre-op Diagnosis Miss Ab Post-op Diagnosis Same Procedure Performed Suction dilatation curettage Surgeon Mazin Rangel MD Anesthesia MAC and Local Indications A 32-year-old female with incomplete 1st trimester Findings Tissue consistent products of conception Description of Procedure Patient was prepped draped was placed was sedation speculum placed posterior fornix. Anterior lip of the cervix grasped with single-tooth. 2.5cc 1% xylocaine anesthesia placed at 2:48 a.m., 10 the cervix. Uterus to cm. Serial dilatation fragmented followed by passes 9. Curved suction several passes. Tissue the instruments were withdrawn a good grating sound was heard. Patient went to recovery in satisfactory condition. Blood loss was estimated at5cc. Sponge instrument were immediate complications noted Estimated Blood Loss 5 Drains No Packing No Pathology Yes Complications No immediate complications Condition Stable Disposition PACU
[2023-08-14 07:41] VITALS: BP 86/48; PULSE 62; RESP 12; O2SAT 98
[2023-08-14 08:10] VITALS: BP 100/52; PULSE 52; RESP 12; O2SAT 100
[2023-08-14 08:30] VITALS: BP 119/87; PULSE 46; RESP 12; O2SAT 100
[2023-08-14 08:45] VITALS: BP 119/71; PULSE 45; RESP 12
== END 2023-08-14 08:54 | disposition home or self-care (01) ==
PROVIDERS: Visit Provider Obstetrics & Gynecology
PROC: (CPT 59820; principal; 2023-08-14 07:30)
DX: O03.4 Incomplete spontaneous abortion without complication (principal)
CPT/HCPCS: 59820; 36415; 85014; 85018; 85461; 86850; 86900; 86901; 88305; A9270; J1100; J2250; J2405; J2704; J3010; J7120